=== PATIENT | male | born 1975 | race African-American/Black ===

== ENCOUNTER 2018-11-26 14:52 | Emergency (ER) | payer OTHER ==
[~2018-11-26] VITALS: Ht 182.9 cm; Wt 81.6 kg
[2018-11-26 15:00] VITALS: BP 120/71
[2018-11-26] MEDS ORDERED: levETIRAcetam 500 MG in D5W 110 ML IV ONE (15:00)
--- NOTE | 2018-11-26 15:00 | NUR ---
ED Nurse Note: Pt brought in to ER by ambulance after having witnessed seizure for 1 minutes in [employer] parking lot. pt is sleeping, skin clean and intact, VSS.
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
[2018-11-26 15:36] LABS: BASOPHILS % (AUTO) 1.5 % (0.0-2.0); EOSINOPHILS % (AUTO) 3.4 % (0.0-3.0); HEMATOCRIT 46.1 % (42.0-52.0); HEMOGLOBIN 14.7 G/DL (14.2-18.0); LYMPHOCYTES % (AUTO) 19.1 % (20.0-45.0); MEAN CORPUSCULAR VOLUME 83 FL (80-99); MONOCYTES % (AUTO) 4.3 % (1.0-10.0); NEUTROPHILS % (AUTO) 71.7 % (45.0-75.0); PLATELET COUNT 246 K/UL (150-450); RED BLOOD COUNT 5.55 M/UL (4.70-6.10); RED CELL DISTRIBUTION WIDTH 12.4 % (11.6-14.8); WHITE BLOOD COUNT 7.5 K/UL (4.8-10.8)
[2018-11-26 15:44] LABS: ANION GAP 26 mmol/L (5-15); BLOOD UREA NITROGEN 11 mg/dL (7-18); CALCIUM 9.6 MG/DL (8.5-10.1); CARBON DIOXIDE 14 MMOL/L (21-32); CHLORIDE 100 MMOL/L (98-107); CREATININE 1.8 MG/DL (0.55-1.30); POTASSIUM 3.8 MMOL/L (3.5-5.1); SODIUM 140 MMOL/L (136-145)
[2018-11-26 15:48] LABS: ALANINE AMINOTRANSFERASE 35 U/L (12-78); ALKALINE PHOSPHATASE 101 U/L (46-116); ASPARTATE AMINO TRANSFERASE 29 U/L (15-37); BILIRUBIN,TOTAL 0.3 MG/DL (0.2-1.0); CREATINE KINASE 557 U/L (26-308)
--- NOTE | 2018-11-26 15:49 | Diagnostic Imaging Report ---
Indication: Shortness of breath Technique: One view of the chest Comparison: none Findings: Lungs and pleural spaces are clear. Heart size is normal Impression: No acute process
[2018-11-26 16:00] VITALS: BP 118/70
[2018-11-26 16:09] LABS: APPEARANCE,URINE CLEAR; BILIRUBIN, URINE NEGATIVE (NEGATIVE); COLOR,URINE PALE YELLOW; GLUCOSE, URINE (UA) NEGATIVE (NEGATIVE); KETONES,URINE NEGATIVE (NEGATIVE); LEUKOCYTE ESTERASE ,URINE NEGATIVE (NEGATIVE); NITRITE,URINE NEGATIVE (NEGATIVE); PH,URINE 5 (4.5-8.0); PROTEIN,URINE 2+ (NEGATIVE); UROBILINOGEN,URINE NORMAL MG/DL (0.0-1.0)
--- NOTE | 2018-11-26 16:53 | Diagnostic Imaging Report ---
Indications: Seizures Technique: Spiral acquisitions obtained through the brain. Angled axial and coronal 5 x 5 mm slices were reconstructed. Total dose length product 3937.8 mGycm. CTDI vol(s) 70.38,70.38,70.38 mGy. Dose reduction achieved using automated exposure control Comparison: None. Findings: There is some image degradation due to motion artifact, despite repeat acquisitions. No definite acute intracranial hemorrhage or edema, mass effect, nor midline shift. Normal erickson-white differentiation. Normal-sized ventricles and extra-axial CSF spaces. The orbits are unremarkable. There is fairly extensive sinus disease, involving the bilateral ethmoid, sphenoid, and right maxillary sinuses. The calvarium is intact. The mastoids are clear Impression: Somewhat limited exam due to motion artifact No definite acute intercranial bleed or mass effect. Consider MRI for more sensitive characterization of stated clinical history of seizures Sinus disease The CT scanner at [facility] is accredited by the [employer] and the scans are performed using protocols designed to limit radiation exposure to as low as reasonably achievable to attain images of sufficient resolution adequate for diagnostic evaluation.
--- NOTE | 2018-11-26 16:56 | NUR ---
ED Nurse Note: pt still sleeping and resting in bed. VSS.
[2018-11-26 17:00] VITALS: BP 122/73
--- NOTE | 2018-11-26 17:51 | NUR ---
ED Nurse Note: pt woke up. pt aao x2-3 and stable. ERMD at bedside.
--- NOTE | 2018-11-26 17:53 | NUR ---
ED Nurse Note: pt still drowsy and went back to sleep.
[2018-11-26 18:00] VITALS: BP 141/82
[2018-11-26] MEDS ORDERED: KEPPRA500 M4 ORAL (18:14)
[2018-11-26] MEDS ORDERED: IBUPROFEN600 MG ORAL (18:14)
[2018-11-26] MEDS ORDERED: Ketorolac 30mg Inj IV ONE (18:15)
--- NOTE | 2018-11-26 18:48 | NUR ---
ED Nurse Note: ERMD verbally order to assess pt's ambulation status and pt is refusing to get up and walk.
--- NOTE | 2018-11-26 19:13 | NUR ---
HAND-OFF: Report given to RICARDO Odonnell. pt is currently ambulating with hydrographical technical officer.
[2018-11-26 19:45] VITALS: BP 136/76
--- NOTE | 2018-11-26 19:45 | NUR ---
ER Nurse Note: Pt seen, treated, medically cleared for discharge by ERMD. Discharge instructions and prescriptions given [facility] repeat verbaliazation by pt. Pt refused to sign forms; second RN witnessed. Instructed to follow up [facility] primary care proivder within one week. Pt a&ox4, VSS, no signs of dsitress. Pt able to ambulate safely without assistance. IV removed; site clean and bandaged. ID removed. Pt left with own transportation.
--- NOTE | 2018-11-27 13:27 | Cardiology Report ---
APPROVED REPORT EKG Measurement Heart [id number] Normal sinus rhythm Normal ECG
== END 2018-11-26 19:45 | disposition home or self-care (01) ==
LOC: EDBD 14:52 → EMR 15:26
DX: G40.409 Other generalized epilepsy and epileptic syndromes, not intractable, without status epilepticus (principal); F19.10 Other psychoactive substance abuse, uncomplicated
CPT/HCPCS: 36415; 70450; 71045; 80053; 80156; 80164; 80184; 80185; 80188; 80307; 80329; 81003; 82550; 85025; 93005; 96361; 96374; 96375; 99284; J1885; J1953